=== PATIENT | female | born 1980 | race Caucasian/White ===

== ENCOUNTER 2020-02-28 16:26 | Emergency (ER) | payer MEDICAID ==
[~2020-02-28] VITALS: Ht 154.9 cm; Wt 75.0 kg
[2020-02-28 16:35] VITALS: BP 122/67
== END 2020-02-28 18:00 | disposition home or self-care (01) ==
LOC: ER 16:26
DX: F32.9 Major depressive disorder, single episode, unspecified (principal); Z76.0 Encounter for issue of repeat prescription
CPT/HCPCS: 99281; 99283